=== PATIENT | female | born 1955 | race Caucasian/White ===

== ENCOUNTER → 2020-11-14 | Outpatient (CLI) | payer MEDICARE ==
[~2020-11-14] MED LIST: CLOPIDOGREL75 MG PO; ECOTRIN81 MG PO; FISH OIL 1,0001 EACH PO; GLUCOPHAGE1000 MG PO; JARDIANCE25 MG PO; LASIX20 MG PO; LIPITOR80 MG PO; LORTAB 5-325 M1 EACH PO; NEURONTIN400 MG PO; NOVOLOG100 UNIT/1 SC; PRINIVIL10 MG PO; PROTONIX40 MG PO; ROCEPHIN 2 GM AD2 GM IV; TOPROL XL100 MG PO; TRESIBA FL100 UNIT/1 SQ; VITAMIN C 500500 MG PO; ZYVOX600 MG PO
== END ==
LOC: EXRD 13:48
DX: I73.89 Other specified peripheral vascular diseases (principal)
CPT/HCPCS: 93925

== ENCOUNTER → 2021-01-22 | Outpatient (CLI) | payer MEDICARE | LOC: CT 01-12 10:30 | DX: I70.213 Atherosclerosis of native arteries of extremities with intermittent claudication, bilateral legs (principal); K80.20 Calculus of gallbladder without cholecystitis without obstruction | CPT/HCPCS: 36415; 75635; 82565; Q9967 ==